=== PATIENT | female | born 1960 | race Caucasian/White ===

== ENCOUNTER → 2017-11-12 | Outpatient (CLI) | payer OTHER | LOC: BMCIMAGING 14:21 | PROVIDERS: ATTEND Family Medicine | DX: Z13.820 Encounter for screening for osteoporosis (principal); M85.80 Other specified disorders of bone density and structure, unspecified site ==

== ENCOUNTER 2018-07-25 13:32 | Emergency (ER) | payer BC, OTHER ==
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
[2018-07-25] MEDS ORDERED: LET GEL TOPICAL 1 EA SYR TP ONE (14:42)
[2018-07-25 15:26] VITALS: BP 132/76
== END 2018-07-25 15:15 | disposition home or self-care (01) ==
PROC: 2W38X1Z Immobilization of Right Upper Extremity using Splint (ICD-10-PCS; principal; 2018-07-25)
DX: S52.021A Displaced fracture of olecranon process without intraarticular extension of right ulna, initial encounter for closed fracture (principal); V18.0XXA Pedal cycle driver injured in noncollision transport accident in nontraffic accident, initial encounter; Y92.9 Unspecified place or not applicable

== ENCOUNTER 2018-07-27 13:02 | Day surgery (SDC) | payer BC, OTHER ==
[2018-07-27] MEDS ORDERED: ceFAZolin 2 GM/DEXTROSE 100 ML IV ONE (13:29)
[2018-07-27] MEDS ORDERED: LR 1,000 ML IV ONE (13:30)
--- NOTE | 2018-07-27 13:46 | PDHPUP ---
History & Physical Update H&P update statement: This history and physical update is based on an assessment of the patient which was completed after admission or registration (within 24 hours), but prior to the surgery/procedure. H&P update: H&P reviewed & patient examined, no change in patient's condition since H&P completed
[2018-07-27] MEDS ORDERED: BUPIVACAINE 0.5% 30 ML SDV ONE (13:55)
[2018-07-27] MEDS ORDERED: HYDROmorphONE/DILAUDID 1 MG/ML INJ IVP PRN (14:19)
[2018-07-27] MEDS ORDERED: MIDAZOLAM 2 MG/2 ML VIAL IVP ONE (14:19)
[2018-07-27] MEDS ORDERED: ONDANSETRON 4 MG/2 ML VIAL IVP PRN (14:19)
[2018-07-27] MEDS ORDERED: ACETAMINOPHEN 500 MG TAB PO PRN (14:19)
[2018-07-27] MEDS ORDERED: ALBUTEROL 3 ML DEYVIAL IH PRN (14:19)
[2018-07-27] MEDS ORDERED: DEXAMETHASONE 4 MG/ML VIAL IVP PRN (14:19)
[2018-07-27] MEDS ORDERED: NALOXONE HCL 0.4 MG/ML INJ IVP PRN (14:19)
--- NOTE | 2018-07-27 14:20 | PDANEPAE ---
ANE History of Present Illness Right Elbow ORIF ANE Past Medical History - Cardiovascular History Hx Hypertension: No Hx Arrhythmias: Yes Hx Chest Pain: No Hx Coronary Artery / Peripheral Vascular Disease: No Hx CHF / Valvular Disease: No Hx Palpitations: No Cardiovascular History Comment: HX OF SVT - Pulmonary History Hx COPD: No Hx Asthma/Reactive Airway Disease: No Hx Recent Upper Respiratory Infection: No Hx Oxygen in Use at Home: No Hx Sleep Apnea: No - Neurologic History Hx Cerebrovascular Accident: No Hx Seizures: No Hx Dementia: No - Endocrine History Hx Diabetes: No - Renal History Hx Renal Disorders: No - Liver History Hx Hepatic Disorders: No - Neurological & Psychiatric Hx Hx Neurological and Psychiatric Disorders: No - Cancer History Hx Cancer: No - Congenital Disorder History Hx Congenital Disorders: No - GI History Hx Gastrointestinal Disorders: No - Other Health History Other Health History: OSTEOPENIA - Chronic Pain History Chronic Pain: No - Surgical History Prior Surgeries: ENDOMETRIAL ABLATION, WISDOM TEETH ANE Review of Systems Review of Systems: - Exercise capacity METS (RN): 6 METS ANE Patient History - Allergies Allergies/Adverse Reactions: soy Allergy (Mild, Verified 07/27/18 13:59) GI UPSET avocado Allergy (Verified 07/25/18 13:48) latex Allergy (Verified 07/25/18 13:48) - Home Medications Home Medications: AMITRIPTYLINE HCL 03/17/14 [Last Taken 07/26/18] Allertech 03/17/14 [Last Taken 07/26/18] Fluticasone Nasal 03/17/14 [Last Taken 07/26/18] - NPO status NPO Since - Liquids (Date): 07/27/18 NPO Since - Liquids (Time): 06:30 NPO Since - Solids (Date): 07/26/18 NPO Since - Solids (Time): 22:00 - Smoking Hx Smoking Status: Never smoked ANE Labs/Vital Signs - Vital Signs Blood Pressure: 117/77 Heart Rate: 57 Respiratory Rate: 14 O2 Sat (%): 99 Height: 172.72 cm Weight: 58.967 kg ANE Physical Exam - Airway Neck exam: FROM Mallampati Score: Class 2 Mouth exam: normal dental/mouth exam - Pulmonary Pulmonary: clear to auscultation - Cardiovascular Cardiovascular: regular rate and rhythym - ASA Status ASA Status: II ANE Anesthesia Plan Anesthesia Plan: GA w LMA
[2018-07-27] MEDS ORDERED: MIDAZOLAM 2 MG/2 ML VIAL ONE (14:22)
[2018-07-27] MEDS ORDERED: PROPOFOL 200 MG/20 ML VIAL ONE (14:24)
[2018-07-27] MEDS ORDERED: fentaNYL 100 MCG/2 ML INJ ONE ×3 (14:24→16:29)
[2018-07-27] MEDS ORDERED: DEXAMETHASONE 4 MG/ML VIAL ONE (14:25)
[2018-07-27] MEDS ORDERED: ONDANSETRON 4 MG/2 ML VIAL ONE (14:25)
--- NOTE | 2018-07-27 16:26 | POSTANESTH ---
Post Anesthetic Evaluation Cardiovascular Status: Normal, Stable Respiratory Status: Normal, Stable Level of Consciousness/Mental Status: Can Participate in Eval, Alert and Oriented Pain Control: Adequate, Prn Tx Ordered Nausea/Vomiting Control: Adequate, Prn Tx Ordered Complications Possibly Related to Anesthesia: None Noted
[2018-07-27] MEDS: fentaNYL 100 MCG/2 ML INJ IVP PRN ×3 (16:30→16:48)
[2018-07-27] MEDS ORDERED: oxyCODONE IR 5 MG TAB ONE ×2 (16:52→17:32)
[2018-07-27] MEDS: oxyCODONE IR 5 MG TAB PO PRN ×2 (16:52→17:35)
--- NOTE | 2018-07-27 18:21 | POSTOPPROG ---
Post Op Note Date of Operation: 07/27/18 Surgeon: Adan Jhaveri Head Gauge Unit Operator: Charity Anesthesiologist: Martha Anesthesia: GET(General Endotracheal) Pre-op Diagnosis: R olecranon fx Post-op Diagnosis: eliud e Indication: above Procedure: R orif olecranon Inf/Abcess present in the surg proc area at time of surgery?: No EBL: Minimal
[2018-07-27 18:32] VITALS: BP 118/83
--- NOTE | 2018-07-27 20:06 | GOP ---
DATE OF OPERATION: 07/27/2018 SURGEON: Adan Jhaveri MD WAFER SLICER: Deandre Nash SA. ANESTHESIA: General. PREOPERATIVE DIAGNOSIS: Right olecranon fracture with comminution. POSTOPERATIVE DIAGNOSIS: Right olecranon fracture with comminution. PROCEDURE PERFORMED: ORIF, right olecranon fracture. FINDINGS: SPECIMENS: None. ESTIMATED BLOOD LOSS: 5 mL. INDICATIONS: Female broke her olecranon. I counseled her on the risks and benefits of surgery and s he elected to proceed. We discussed risks of nonunion, malunion, malreduction, arthritis, continued pain, nerve injury, and hardware prominence necessitating removal. Informed consent obtained. All q uestions were answered. She was marked preoperatively. DESCRIPTION OF PROCEDURE: She was taken to the operative suite, sterilely prepped and draped in a no rmal fashion. Time-out was performed verifying the site, side, location, agreement of the team. A t ourniquet was utilized after Esmarch. I made an incision over the olecranon, curved around the bursa . I dissected down to the bone protecting neurovascular structures. I debrided the fracture site as well as debrided and thoroughly irrigated the joint. There was an area of comminution. I did obtai n a reduction of the 2 main pieces, held this with a clamp and then a wire. I was then able to reduc e the piece of comminution. I placed a plate over this, brought the plate to bone with cortical scre ws and achieved compression across the fracture site with a cortical screw and then provided locking screws for additional stability. I then oversewed the comminution soft tissue fragment and bony piec e into its rightful place. Checked x-rays and then did a range of motion. This was stable. Good re duction, good hardware placement. She was irrigated, closed with 0 Vicryl, 2-0 Vicryl, 3-0 Quill, an d Dermabond. She was then placed in a splint. Sterile dressing. Taken to PACU in stable condition. IMPLANT: Synthes olecranon plate, nonlocking, locking screws. COMPLICATIONS: None. DRAINS: None. CONDITION: Stable. /[id number]/MODL
== END 2018-07-27 18:32 | disposition home or self-care (01) ==
LOC: FSGY 13:02
PROVIDERS: ATTEND Orthopaedic Surgery
PROC: 0PSK04Z Reposition Right Ulna with Internal Fixation Device, Open Approach (ICD-10-PCS; principal; 2018-07-27 15:00)
DX: S52.021A Displaced fracture of olecranon process without intraarticular extension of right ulna, initial encounter for closed fracture (principal); V18.2XXA Unspecified pedal cyclist injured in noncollision transport accident in nontraffic accident, initial encounter; Y92.9 Unspecified place or not applicable; Y93.55 Activity, bike riding; M85.89 Other specified disorders of bone density and structure, multiple sites
CPT/HCPCS: 24685; C1769; C1713; J0690; J1100; J2250; J2405; J2704; J3010

== ENCOUNTER → 2018-10-22 | Outpatient (CLI) | payer OTHER | LOC: FIMAGING 14:55 | PROVIDERS: ATTEND Family Medicine | DX: Z12.31 Encounter for screening mammogram for malignant neoplasm of breast (principal); Z80.3 Family history of malignant neoplasm of breast ==